=== PATIENT | female | born 1955 | race Caucasian/White ===

== ENCOUNTER 2018-11-05 13:50 | Outpatient (CLI) | payer OTHER ==
--- NOTE | 2018-11-05 14:26 | BD ---
FDEXA bone density scan: 11/05/2018 COMPARISON: None HISTORY: Postmenopausal female undergoing screening for osteoporosis FINDINGS: L1 0.795 g/sq cm T score -1.8 L2 0.814 g/sq cm T score -1.9 L3 0.861 g/sq cm T score -2.0 L4 0.899 g/sq cm T score -1.5 L1-L4 0.846 g/sq cm T score -1.8 Femoral neck 0.734 g/sq cm T score -1.0 Total proximal femur 0.843 g/sq cm T score -0.8 The FRAX-WHO fracture risk assessment will reports a 10 year fracture risk in an untreated patient of 13% for major osteoporotic fracture and 0.5% for hip fracture. 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
--- NOTE | 2018-11-18 11:12 | MMO ---
Bilateral MAMMO Bilat Screen [facility]. CLINICAL HISTORY: Patient is 62 years old and is seen for screening. The patient has no family history of breast cancer. The patient has no personal history of cancer. VIEWS: The views performed were: bilateral craniocaudal with tomosynthesis and bilateral mediolateral oblique with tomosynthesis. FILMS COMPARED: The present examination has been compared to prior imaging studies performed at [facility] on 02/17/2013 and 01/09/2017. MAMMOGRAM FINDINGS: The breasts are heterogeneously dense, which could obscure a lesion on mammography. Finding 1: There are stable benign appearing calcifications seen in both breasts. Finding 2: There are stable benign appearing densities seen in both breasts. There are no suspicious masses, suspicious calcifications, or new areas of architectural distortion. IMPRESSION: THERE IS NO MAMMOGRAPHIC EVIDENCE OF MALIGNANCY. A ROUTINE FOLLOW-UP MAMMOGRAM IN 1 YEAR IS RECOMMENDED. THE RESULTS OF THIS EXAM WERE SENT TO THE PATIENT. ACR BI-RADS Category 2 - Benign finding MAMMOGRAPHY NOTE: 1. A negative mammogram report should not delay a biopsy if a dominant of clinically suspicious mass is present. 2. Approximately 10% to 15% of breast cancers are not detected by mammography. 3. Adenosis and dense breasts may obscure an underlying neoplasm.
== END 2018-11-05 13:51 | disposition home or self-care (01) ==
LOC: BICMAMMO 13:50
PROVIDERS: ATTEND Family Medicine
DX: Z12.31 Encounter for screening mammogram for malignant neoplasm of breast (principal); M81.0 Age-related osteoporosis without current pathological fracture; M85.89 Other specified disorders of bone density and structure, multiple sites
CPT/HCPCS: 77063; 77067; 77080

== ENCOUNTER 2019-07-17 09:09 | Outpatient (CLI) | payer OTHER ==
--- NOTE | 2019-07-17 09:30 | RAD ---
Left rib series LEFT RIB SERIES INDICATION: History of falling off a horse with palpable abnormality left mid to posterior ribs. COMPARISON: None. FINDINGS: Visualized Left Chest: Visualized left lung is clear. No pneumothorax. Left Ribs: There is a healing posterior left 10th rib fracture. No acute displaced fractures evident. IMPRESSION: Healing posterior left 10th rib fracture.
== END 2019-07-17 09:10 | disposition home or self-care (01) ==
LOC: BICRAD 09:09
PROVIDERS: ATTEND Family Medicine
DX: R22.2 Localized swelling, mass and lump, trunk (principal); S22.32XD Fracture of one rib, left side, subsequent encounter for fracture with routine healing
CPT/HCPCS: 36415; 80053; 80061; 82306; 87624

== ENCOUNTER 2020-04-14 11:27 | Outpatient (CLI) | payer OTHER ==
--- NOTE | 2020-04-14 13:26 | MMO ---
Bilateral MAMMO Bilat Screen [facility]. CLINICAL HISTORY: Patient is 64 years old and is seen for screening. The patient has no family history of breast cancer. The patient has no personal history of cancer. VIEWS: The views performed were: bilateral craniocaudal with tomosynthesis and bilateral mediolateral oblique with tomosynthesis. FILMS COMPARED: The present examination has been compared to prior imaging studies performed at [facility] on 11/05/2018, and at [facility] on 02/17/2013 and 01/09/2017. This study has been interpreted with the assistance of computer-aided detection. MAMMOGRAM FINDINGS: The breasts are heterogeneously dense, which could obscure a lesion on mammography. There are no suspicious masses, suspicious calcifications, or new areas of architectural distortion. IMPRESSION: THERE IS NO MAMMOGRAPHIC EVIDENCE OF MALIGNANCY. A ROUTINE FOLLOW-UP MAMMOGRAM IN 1 YEAR IS RECOMMENDED. THE RESULTS OF THIS EXAM WERE SENT TO THE PATIENT. ACR BI-RADS Category 1 - Negative MAMMOGRAPHY NOTE: 1. A negative mammogram report should not delay a biopsy if a dominant of clinically suspicious mass is present. 2. Approximately 10% to 15% of breast cancers are not detected by mammography. 3. Adenosis and dense breasts may obscure an underlying neoplasm. Reported by: MELISSA MOYER MD Electonically Signed: [id number]
== END 2020-04-14 11:28 | disposition home or self-care (01) ==
LOC: BICMAMMO 11:27
PROVIDERS: ATTEND Family Medicine
DX: Z12.31 Encounter for screening mammogram for malignant neoplasm of breast (principal)
CPT/HCPCS: 77063; 77067

== ENCOUNTER 2021-05-27 14:24 | Outpatient (CLI) | payer MEDICARE | END 2021-05-27 14:25 | disposition home or self-care (01) | LOC: BICMAMMO 14:24 | PROVIDERS: ATTEND Family Medicine | DX: Z12.31 Encounter for screening mammogram for malignant neoplasm of breast (principal); Z80.3 Family history of malignant neoplasm of breast; M85.89 Other specified disorders of bone density and structure, multiple sites | CPT/HCPCS: 77063; 77067; 77080 ==

== ENCOUNTER 2022-05-09 11:36 | Outpatient (CLI) | payer MEDICARE | END 2022-05-09 11:37 | disposition home or self-care (01) | LOC: BICRAD 11:36 → SCSRAD 11:37 | PROVIDERS: ATTEND Family Medicine | DX: R05.9 Cough, unspecified (principal) | CPT/HCPCS: 71046 ==